=== PATIENT | male | born 1970 | race Caucasian/White ===

== ENCOUNTER 2020-07-29 17:29 | Emergency (ER) | payer OTHER, SELFPAY ==
[2020-07-29 18:10] VITALS: BP 145/99; PULSE 81; RESP 16; TEMP 36.4; O2SAT 98
--- NOTE | 2020-07-29 19:08 | ED.SKABFB ---
HPI - Skin/Abscess/Foreign Bdy General Chief complaint: Skin/Abscess/Foreign Body Stated complaint: Calculus on left foot Time Seen by Provider: 07/29/20 19:09 Source: patient and RN notes reviewed Mode of arrival: ambulatory Limitations: no limitations History of Present Illness HPI narrative: 49 year old male who presents to express care with complaints of hard callus/corn formation on the lateral aspect of his left 3rd toe which has been there for about 1 week duration. Patient states that he got new work boots and it is irritating the area making it painful to ambulate. Patient has also a blister on the medial aspect of his left 4th toe from rubbing against the callus area. Patient states that he has been using corn pads to the area. Patient has history of DVT and pulmonary embolism and takes daily Zarelto blood thinner. Patient denies any tingling or numbness to his left foot, strong pedal and posterior tibial pulses present, foot and toes are warm and pink. MD complaint: other (corn or callus 3rd left toe lateral aspect) Onset (ago): week(s) (1) Tetanus up to date: yes Location: L foot (lateral side of 3rd left toe) Severity: moderate Severity scale (1-10): 5 Quality: aching Pain Consistency: intermittent Relieving factors: rest Exacerbating factors: other (ambulation) Associated symptoms: denies other symptoms Treatments prior to arrival: other (corn pads) Related Data Allergies Allergy/AdvReac Type Severity Reaction Status Date / Time No Known Allergies Allergy Verified 12/07/19 16:05 Review of Systems Review of Systems: Narrative: CONSTITUTIONAL: Denies fever, chills, or sweats. EYES: Denies visual changes, redness, or discharge. ENT: Denies rhinorrhea, congestion, sore throat, or otalgia. CARDIOVASCULAR: Denies chest pain, palpitations, or edema. RESPIRATORY: Denies cough or dyspnea. GASTROINTESTINAL: Denies abdominal pain, nausea, vomiting, or diarrhea. GENITOURINARY: Denies dysuria or hematuria. SKIN: Denies rash or itching.Hard callus/corn formation to the lateral aspect of his left 3rd toe which is painful with blister area to medial aspect of his left 4th toe MUSCULOSKELETAL: Denies back pain, joint pain, or myalgia. NEUROLOGIC: Denies headache, numbness, or weakness. PSYCHIATRIC: Denies anxiety or depression. All systems reviewed & are unremarkable except as noted in HPI and below PMFSH Past Medical History Medical History (Updated 08/02/20 @ 08:54 by Crystal Hardin NP) DVT (deep venous thrombosis) Essential (primary) hypertension Pulmonary embolism Screening for prostate cancer Screening, lipid Surgical History Surgical History (Updated 08/02/20 @ 08:34 by Crystal Hardin NP) H/O sinus surgery History of tonsillectomy Family History Family History Mother Family history of malignant neoplasm Other Diabetes mellitus Family history of cardiovascular disease Hypertension Social History Social History (Updated 08/02/20 @ 08:34 by Crystal Hardin NP) Smoking status: Former smoker Smoking end date: 11/25/06 Alcohol intake: never Living arrangements: with family Gender identity (if verbalized by the patient): Male Comments At time of signature, agree with nursing past medical, surgical, social and family history. There is no relevant family history pertinent to the presenting complaint Exam Narrative: Exam Narrative: GENERAL: Well-appearing, well-nourished, and in no acute distress. HEAD: Normocephalic, atraumatic. EYES: PERRLA and EOMI. ENT: Nares clear, no rhinorrhea or epistaxis. Mucous membranes moist. NECK: Supple. CHEST: Clear to auscultation. No respiratory distress.SAO2 98% on room air HEART: Regular rate and rhythm. No murmur heard. Normal peripheral pulses. ABDOMEN: Soft, nontender, nondistended, normal active bowel sounds. EXTREMITIES: Normal range of motion. No edema. SKIN: Warm, dry, no rash.Firm raised c
== END 2020-07-29 19:35 | disposition home or self-care (01) ==
PROVIDERS: Emergency Provider Registered Nurse; PCP Family Medicine
DX: L84 Corns and callosities (principal); M79.675 Pain in left toe(s); S90.425A Blister (nonthermal), left lesser toe(s), initial encounter; X58.XXXA Exposure to other specified factors, initial encounter; Z87.891 Personal history of nicotine dependence; Z86.718 Personal history of other venous thrombosis and embolism; I10 Essential (primary) hypertension; Z86.711 Personal history of pulmonary embolism
CPT/HCPCS: 99213; G0463

== ENCOUNTER 2021-03-06 17:42 | Outpatient (CLI) | payer OTHER, SELFPAY ==
--- NOTE | ~2021-03-06 | US_ITS ---
US venous doppler [facility] DATE: 03/06/2021 18:22 INDICATION: History of deep venous thrombosis in 2018 TECHNIQUE: Real-time and color flow imaging and Doppler analysis of the veins of the lower extremitie s COMPARISON: 01/01/2018 venous duplex examination of both legs FINDINGS: An approximately 3 x 6 x 3.3 cm popliteal cyst is noted on the right. The greater saphenous veins are patent. There is spontaneous and phasic flow and normal augmentation and color flow signal and normal compression of the deep veins of both legs. IMPRESSION: No evidence of deep venous thrombosis of either leg Right popliteal cyst Reviewed, dictated and finalized at Location [facility]. Reviewed, dictated and finalized at location A.
== END 2021-03-06 17:43 | disposition home or self-care (01) ==
PROVIDERS: PCP Family Medicine; Visit Provider Nurse Practitioner Family
DX: I82.592 Chronic embolism and thrombosis of other specified deep vein of left lower extremity (principal); R22.41 Localized swelling, mass and lump, right lower limb; M71.21 Synovial cyst of popliteal space [Baker], right knee
CPT/HCPCS: 93970

== ENCOUNTER → 2021-11-20 13:19 | Outpatient (CLI) | payer OTHER, SELFPAY ==
--- NOTE | ~2021-11-20 | US_ITS ---
EXAMINATION: US venous doppler [facility] DATE: 11/20/2021 13:47 INDICATION: Right lower limb pain. TECHNIQUE: Grayscale ultrasound images without and with compression and Doppler ultrasound images of the right lower extremity veins were obtained. COMPARISON: Ultrasound 03/06/2021 FINDINGS: The visualized portions of right common femoral vein, profunda (deep) femoral vein, femoral vein, pop liteal vein, peroneal veins, posterior tibial veins, and greater saphenous vein outflow are patent. T here is a moderate-sized Daniel's cyst. IMPRESSION: 1. No deep venous thrombosis. 2. Moderate-sized Daniel's cyst. Reviewed, dictated and finalized at location A. 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
== END ==
PROVIDERS: PCP Family Medicine; Visit Provider Family Medicine
DX: M79.89 Other specified soft tissue disorders (principal); M71.21 Synovial cyst of popliteal space [Baker], right knee
CPT/HCPCS: 93971

== ENCOUNTER → 2022-06-09 07:57 | Outpatient (CLI) | payer OTHER, SELFPAY ==
--- NOTE | ~2022-06-09 | XR_ITS ---
EXAMINATION: XR chest 2V Exam Date/Time: 06/09/2022 8:10 CDT HISTORY: R06.2 - Wheezing Comparison: 05/21/2007. RESULT: Lines, tubes, and devices: None. Lungs and pleura: Clear. Cardiomediastinal silhouette: Stable. Other: No acute osseous or upper abdominal finding. IMPRESSION: No acute cardiopulmonary process. Reviewed, dictated and finalized at location K.
== END ==
PROVIDERS: PCP Family Medicine; Visit Provider Physician Assistant Medical
DX: Z87.891 Personal history of nicotine dependence (principal); R06.2 Wheezing
CPT/HCPCS: 71046

== ENCOUNTER 2025-03-10 10:11 | Outpatient (CLI) | payer OTHER, SELFPAY ==
--- NOTE | ~2025-03-10 | CT_ITS ---
CT Scan of the Chest without Contrast: Clinical Indication: Lung cancer screening, nicotine dependence Technique: Contiguous sections were acquired throughout the chest without intravenous contrast. Dose reduction technique was used on this scan by utilizing automated exposure control and iterative recon struction technique. The dose-length product (DLP) was 626.32 mGy-cm. Findings: There is no evidence of any significant mediastinal, hilar or axillary lymphadenopathy. Coronary j carlos ry calcifications are present. There is no evidence of pleural or pericardial effusion. The lungs are clear. No pulmonary nodules or infiltrates are noted. Probable minimal emphysema. Images through the upper abdomen reveal no abnormalities. DISH of the spine noted. Impression: Lung RADS 1: Negative. 12 month follow-up screening CT advised. Reviewed, dictated and finalized at location . Impression: Lung RADS 1: Negative. 12 month follow-up screening CT advised.
--- OUTSIDE RECORDS SUMMARY | 2025-03-10 11:12 | XMS_ITS | Clinical Summary ---
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 Gender Identity Not on file Sexual Orientation Not on file Plan of Treatment Health Maintenance Due Date Last Done Comments Hepatitis C Virus (HCV) Screening 1971 TdaP Immunization 1971 Hepatitis B Immunization (1 of 3 - 19+ 3-dose series) 1990 Colonoscopy 2016 Colorectal Cancer Screening 2016 Cologuard 2021 Immunochemical Fecal Occult Blood 2021 Pneumococcal Immunization (5 0+ years) (1 of 1 - PCV) 2021 Zoster Immunization (1 of 2) 2021 Influenza Immunization (#1) 07/26/202408/27, 11/08/2014 SARS-COV-2 Immunization ( - season) 2024 Respiratory Syncytial Virus (RSV) Immunization (Adult) (1 - 1-dose 75+ series) 2046 Meningococcal Immunization (ACWY) Aged Out No longer eligible b ased on patient's age to complete this topic Pneumococcal Immunization Combined Aged Out No longer eligible b ased on patient's age to complete this topic Rotavirus Immunization Aged Out No lo nger eligible based on patient's age to complete this topic
--- OUTSIDE RECORDS SUMMARY | 2025-03-10 11:12 | XMS_ITS | Continuity of Care Document ---
Author Organization [facility] Address [address] [place] [address] Phone Care Team Providers Care Duck Operator Name Role Phone Rodriguez OD, Warren Unavailable Unavailable Procedures Procedure Date Eye Exam & Treatment Refraction SV Plastic Sphcyl Preston +/-4d, .12-2d Ju Frames Deluxe Tint Photochromatic, Plastic Scratch Resistant Coating Eye Exam, New Patient Refraction SV Plastic Sphcyl Preston +/-4d, 2.12-4 Fe Ultra Deluxe Frame Tint Photochromatic, Plastic Scratch Resistant Coating Eye Exam & Treatment Advance Directives Directive Yes / No Effective Date File Name No Information Encounters Encounter Description Practice Location Reason(s) For Visit Diagnoses Date Provider Providers Copied on Encounter [facility], [address] [place] [address] [address], [place], [place], [id number], [place] tel:[phone] [facility] No Information Issa-0 1-201 0 Rodriguez OD Warren. [address], [place], [address], [place]. tel:[phone] [facility], [address], [place], [place], [id number], [place] tel:[phone] [facility] No Information Issa-2 2-200 9 [facility] . [address] [facility], [address], [place], [place], [id number], . tel:[phone] Referring Provider: Warren Horner, [address] [place], [place] [address], [place], [address]. tel:[phone] sulting Provider: Silva Roque, [address] [place] [address], [address]. tel:[phone] [facility], [address] [place] [address] [address], [place], [place], [id number], [place] tel:[phone] [facility] No Information 200 9 Rodriguez OD Warren. [address] [place] [address] [address] , [address], [place], [address], [place]. tel:[phone] [facility], [address] [place] [address] [address], [place], [place], [address], [place] tel:[phone] [facility] No Information 2200 8 [facility] . [address] [facility], [address], [place], [place], [address], . tel:[phone] Referring Provider: Warren Horner, [address] [place], [place] [address] [place] [address], [place], [address]. tel:[phone] sulting Provider: Silva Roque, [address] [place] [address], [address]. tel:[phone] [facility], [address] [place] [address] [address], [place], [place], [address], [place] tel:[phone] [facility] No Information 5-[address] [facility] [address] , [address], [place], [address], [place]. tel:[phone] Family History Family Member Type Diagnosis Age At Onset No Information Payers Payer name Insurance type Covered constitution party ID Authoranaa tieugenio(s) [employer] [place] [id number] Social History Type Description Quantity Date Captured Comments Sex Male Smoking Status No Information Chief Complaint And Reason For Visit No Information Reason For Referral Reason For Referral No Information History Of Present Illness Encounter Date Complaint History Of Prese nt Illness No Information Functional Status Date Functional Assessmen t No Information Instructions Date Instruction Additional Infor mation No Information Assessments Type Assessment Date No Information Patient Care Teams Name Effective Dates (start - stop) Status Members No Information
== END 2025-03-10 10:12 | disposition home or self-care (01) ==
PROVIDERS: PCP Family Medicine
DX: Z12.2 Encounter for screening for malignant neoplasm of respiratory organs (principal); Z87.891 Personal history of nicotine dependence
CPT/HCPCS: 71271

== ENCOUNTER 2025-09-05 12:43 | Emergency (ER) | payer OTHER, SELFPAY ==
[2025-09-05 12:52] VITALS: BP 136/87; PULSE 99; RESP 20; TEMP 37; O2SAT 99
--- NOTE | 2025-09-05 12:56 | ED.GENADULT ---
HPI - General Adult General Chief complaint: Extremity Injury, Lower Stated complaint: pain in toe Time Seen by Provider: 09/05/25 12:47 Source: patient Mode of arrival: ambulatory Limitations: no limitations History of Present Illness HPI narrative: Patient is a 54-year-old male who presents with toe pain on his left foot for 2 months. Fourth toe is rubbing against 3rd toe and causing significant discomfort. 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 Patient also has lymphedema and chronic swelling to bilateral lower legs. Patient has tried padding and Band-Aids in between toes with no relief. Related Data Allergies Allergy/AdvReac Type Severity Reaction Status Date / Time No Known Allergies Allergy Verified 09/05/25 12:59 Review of Systems Review of Systems: All systems reviewed & are unremarkable except as noted in HPI and below Constitutional: Constitutional: Denies body ache(s), Denies chills, Denies fatigue, Denies fever(s), Denies headache(s), Denies malaise and Denies weakness Eyes: Eyes: Denies blurry vision, Denies irritation and Denies loss of vision ENT: Denies otalgia, Denies headache(s), Denies nasal discharge, Denies sinus pain and Denies sore throat Cardiovascular: Cardiovascular: Denies chest pain, Denies irregular heart rhythm and Denies dyspnea Respiratory: Respiratory: Denies dyspnea Gastrointestinal: Gastrointestinal: Denies abdominal pain, Denies melena, Denies hematochezia, Denies diarrhea, Denies nausea and Denies vomiting Musculoskeletal: Musculoskeletal: Denies back pain, Denies myalgias and Reports arthralgias Integumentary/Breasts: Skin/Breast: Denies pruritus, Denies rash and Reports skin pain Neurologic: Denies headache(s), Denies loss of vision and Denies weakness Psychiatric: Psychiatric: Reports no additional psychiatric complaints Endocrine: Endocrine: Denies fatigue PMFSH Past Medical History Medical History Chronic deep vein thrombosis (DVT) Vitamin D deficiency Fatigue Diabetes mellitus Hypothyroidism Screening for colon cancer Thyroid disorder screening Encounter for screening for malignant neoplasm of prostate Pulmonary embolism DVT (deep venous thrombosis) Screening for prostate cancer Screening, lipid Essential (primary) hypertension Surgical History Surgical History H/O sinus surgery History of tonsillectomy Family History Family History Mother Family history of malignant neoplasm Leukemia Father Hypertension Heart disease Sibling No problems noted. 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 There is no relevant family history pertinent to the presenting complaint. Exam Const: General: cooperative, healthy appearing, comfortable, no acute distress and well nourished Nutritional Appearance: well nourished Orientation/consciousness: patient oriented x3 Limitations: no limitations HENMT: Head: normal to inspection, normocephalic and atraumatic Ears: hearing grossly normal bilaterally and external ears normal Face/Nose/Sinus: Normal external nose present, normal facial exam and face symmetric Face and sinus: normal facial exam and face symmetric Mouth: Yes lip normal Eyes: General: appearance normal, both eyes and all related structures Alignment and Position: alignment normal and position normal Periorbital: periorbital findings normal Eyelids: eyelids normal Pupils: Equal, round and reactive pupils present EOM: EOMs intact bilaterally Neck: Neck: normal visual inspection, full ROM and supple Chest: Chest palpation & inspection: normal inspection of the chest Resp: Effort & Inspection: normal respiratory effort and able to speak in complete sentences Auscultation: clear to auscultation bilaterally Cardio: Rate: regular rate Rhythm: regular rhythm Heart sounds: S1 normal heart sound present and S2 normal heart sound present GI: Inspection: normal to inspection Skin: General skin exam: normal color and no rashes or lesions noted Neuro: General: patient oriented x3 and moves all extremities Cranial nerves: Yes Equal, round and reactive pupils present Speech: normal speech Gait exam (Neuro): Normal gait present Extrem: General: normal to inspection, full ROM and no edema Left lower extremity: foot Details: normal capillary refill, tenderness (skin in between 3rd and 4th digit, no wounds present), toes with normal ROM and vascular exam Details: dorsalis pedis pulse present; no unusual warmth and no ecchymosis Psych: Appearance: grossly normal and well kempt Mental Status: mental status grossly normal Speech and movement: Normal speech and movement present Affect: normal affect Attitude: cooperative Thought process: Normal thought process present Course Course Emergency Course: Patient is aware of diagnosis, understands and agrees to treatment plan. Anticipatory guidance given. Patient agrees to follow-up as directed and is aware of reasons to seek care at the emergency department. Portions of this record may have been created with voice recognition software Level of Care: Express Care Visit Vital Signs Vital signs: Vital Signs Temperature 37.0 C 09/05/25 12:52 Pulse Rate 99 09/05/25 12:52 Respiratory Rate 20 09/05/25 12:52 Blood Pressure 136/87 09/05/25 12:52 Pulse Oximetry 99 09/05/25 12:52 Oxygen Delivery Room Air 09/05/25 12:52 Temperature 37.0 C 09/05/25 12:52 Pulse Rate 99 09/05/25 12:52 Respiratory Rate 20 09/05/25 12:52 Blood Pressure 136/87 09/05/25 12:52 Pulse Oximetry 99 09/05/25 12:52 Oxygen Delivery Room Air 09/05/25 12:52 Reviewed Medical Decision Making MDM Narrative Medical decision making narrative: No wounds present in between toes or concerns for athlete's foot. Skin is not red or warm. Deni-taped 4th toe to 5th toe to keep off of 3rd toe. Will refer patient to podiatry Pt well hydrated appearing, in no respiratory distress, hemodynamically stable. Recommend supportive care. The patient is stable at time of discharge the clinical impression was discussed and the patient was given the opportunity to ask questions, which were addressed as completely as possible given the information available at present. Anticipatory guidance and return to care precautions were discussed and the importance of primary care follow-up was stressed and encouraged. The patient voiced understanding of the plan, indications to return, and the need for follow-up. Exam findings show no acute concerns or changes Patient is appropriate for outpatient treatment and follow-up. Differential Diagnosis Differential Diagnosis: Skin irritation, athlete's foot, arthritis Medical Records Medical records reviewed: Yes I reviewed the external patient's medical records. Vital Signs Vital Signs: Vital Signs Temperature 37.0 C 09/05/25 12:52 Pulse Rate 99 09/05/25 12:52 Respiratory Rate 20 09/05/25 12:52 Blood Pressure 136/87 09/05/25 12:52 Pulse Oximetry 99 09/05/25 12:52 Oxygen Delivery Room Air 09/05/25 12:52 Temperature 37.0 C 09/05/25 12:52 Pulse Rate 99 09/05/25 12:52 Respiratory Rate 20 09/05/25 12:52 Blood Pressure 136/87 09/05/25 12:52 Pulse Oximetry 99 09/05/25 12:52 Oxygen Delivery Room Air 09/05/25 12:52 Reviewed Discharge Plan Discharge Clinical Impression: Pain in toe Qualifiers: Laterality: left Qualified Code(s): M79.675 - Pain in left toe(s) Patient Disposition: Home Condition: Stable Instructions: Arthralgia (ED) Additional Instructions: Follow-up with podiatry. Deni-tape 4th toe to 5th toe to try to keep it off of the 3rd toe. Apply Aquaphor between toes Patient Language: Cook Islander Prescriptions: No Action benazepril-hydrochlorothiazide 20-12.5 mg tablet 1 tablet PO DAILY Qty: 90 1RF Xarelto 20 mg tablet 20 mg PO QPM Qty: 90 1RF furosemide 40 mg tablet 40 mg PO QAM Qty: 90 1RF cholecalciferol (vitamin D3) 125 mcg (5,000 unit) capsule 125 mcg PO DAILY Qty: 30 4RF levothyroxine 50 mcg tablet 50 mcg PO DAILY Qty: 90 1RF dapagliflozin propanediol 10 mg tablet 10 mg PO DAILY Qty: 30 3RF Rx Instructions: Name brand only Mounjaro 7.5 mg/0.5 mL pen injector 7.5 mg subcut WEEKLY Qty: 6 0RF Follow-up/Referrals: Tank Diallo MD [Primary Care Provider, Family Practice] - 3 Days Sai Crowe DPM [Physician, Podiatry] - 3 Days Time of Disposition: 13:17
== END 2025-09-05 13:22 | disposition home or self-care (01) ==
PROVIDERS: Emergency Provider Nurse Practitioner Family; PCP Family Medicine
DX: M79.675 Pain in left toe(s) (principal); Z87.891 Personal history of nicotine dependence; I10 Essential (primary) hypertension; E11.9 Type 2 diabetes mellitus without complications; Z79.85 Long-term (current) use of injectable non-insulin antidiabetic drugs; E03.9 Hypothyroidism, unspecified; Z86.718 Personal history of other venous thrombosis and embolism; Z86.711 Personal history of pulmonary embolism; Z79.01 Long term (current) use of anticoagulants
CPT/HCPCS: 99212; G0463